=== PATIENT | male | born 1995 | race Caucasian/White ===

== ENCOUNTER 2016-04-18 00:36 | Emergency (ER) | payer BC, OTHER ==
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
[2016-04-18] MEDS ORDERED: IBUPROFEN 600 MG TABLET PO ONE (00:52)
[2016-04-18 01:05] LABS: URINE APPEARANCE CLEAR; URINE BILIRUBIN NEGATIVE (NEGATIVE); URINE BLOOD NEGATIVE (NEGATIVE); URINE COLOR YELLOW; URINE GLUCOSE (UA) NEGATIVE (NEGATIVE); URINE KETONE NEGATIVE (NEGATIVE); URINE LEUKOCYTE ESTERASE NEGATIVE (NEGATIVE); URINE NITRITE NEGATIVE (NEGATIVE); URINE PROTEIN NEGATIVE (NEGATIVE); URINE UROBILINOGEN 0.2 E.U./dL (0.20 - 1.00)
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
== END 2016-04-18 02:01 | disposition home or self-care (01) ==
LOC: ER 00:36
DX: S00.83XA Contusion of other part of head, initial encounter (principal); S30.810A Abrasion of lower back and pelvis, initial encounter; R51 Headache; Y04.0XXA Assault by unarmed brawl or fight, initial encounter
CPT/HCPCS: 70150; 70450; 81003; 99283